=== PATIENT | female | born 1955 | race Two or more races ===

== ENCOUNTER 2023-04-02 10:00 | Inpatient (IN) | payer OTHER ==
[~2023-04-02] VITALS: Ht 149.9 cm; Wt 50.3 kg
[2023-04-02] MEDS ORDERED: SYNTHROID75 MCG PO (14:02)
[2023-04-02] MEDS ORDERED: DICY20TA PO (14:02)
[2023-04-02] MEDS ORDERED: COZAAR50 MG PO (14:02)
[2023-04-02] MEDS ORDERED: PEPCID AC20 MG PO (14:03)
[2023-04-06 18:47] LABS: HEMATOCRIT 37.2 % (36.0-45.00); HEMOGLOBIN 12.5 g/dL (12.0-15.00); MEAN CELL VOLUME 95.7 fL (80.00-100.00); MEAN CORPUSCULAR HEMOGLOBIN 32.3 pg (27.00-32.0); MEAN CORPUSCULAR HGB CONC 33.7 g/dl (32.0-36.0); RED BLOOD COUNT 3.88 M/uL (4.00-6.00); RED CELL DISTRIBUTION WIDTH 13.1 % (11.5-14.5)
[2023-04-06 18:48] LABS: PLATELET COUNT 126 K/uL (150-450)
[2023-04-06 19:06] LABS: ALBUMIN 3.4 gm/dL (3.4-5.0); CALCIUM 8.4 mg/dL (8.5-10.1); CREATININE SERUM 0.56 mg/dL (0.55-1.02); GFR 107.34; MAGNESIUM 1.5 mg/dL (1.8-2.4); PHOSPHOROUS 2.6 mg/dL (2.5-4.9); POTASSIUM 3.15 mEq/L (3.5-5.1)
[2023-04-07 08:05] LABS: ALBUMIN 3.3 gm/dL (3.4-5.0); CALCIUM 8.4 mg/dL (8.5-10.1); CREATININE SERUM 0.52 mg/dL (0.55-1.02); GFR 116.92; MAGNESIUM 1.8 mg/dL (1.8-2.4); PHOSPHOROUS 3.3 mg/dL (2.5-4.9); POTASSIUM 3.81 mEq/L (3.5-5.1)
[2023-04-07 08:15] LABS: HEMATOCRIT 36.4 % (36.0-45.00); HEMOGLOBIN 12.4 g/dL (12.0-15.00); MEAN CELL VOLUME 95.5 fL (80.00-100.00); MEAN CORPUSCULAR HEMOGLOBIN 32.5 pg (27.00-32.0); RED BLOOD COUNT 3.81 M/uL (4.00-6.00); RED CELL DISTRIBUTION WIDTH 13.1 % (11.5-14.5)
[2023-04-07 11:58] LABS: PLATELET COUNT 116 K/uL (150-450)
[2023-04-08 07:37] LABS: ALBUMIN 3.5 gm/dL (3.4-5.0); CALCIUM 8.6 mg/dL (8.5-10.1); CREATININE SERUM 0.64 mg/dL (0.55-1.02); GFR 92.01; MAGNESIUM 2.2 mg/dL (1.8-2.4); POTASSIUM 3.37 mEq/L (3.5-5.1)
[2023-04-08 08:18] LABS: HEMATOCRIT 39.9 % (36.0-45.00); HEMOGLOBIN 13.3 g/dL (12.0-15.00); MEAN CELL VOLUME 97.8 fL (80.00-100.00); MEAN CORPUSCULAR HEMOGLOBIN 32.6 pg (27.00-32.0); MEAN CORPUSCULAR HGB CONC 33.3 g/dl (32.0-36.0); RED BLOOD COUNT 4.08 M/uL (4.00-6.00); RED CELL DISTRIBUTION WIDTH 12.9 % (11.5-14.5)
[2023-04-08 08:43] LABS: PLATELET COUNT 123 K/uL (150-450)
[2023-04-08 09:07] LABS: PHOSPHOROUS 1.9 mg/dL (2.5-4.9)
[2023-04-09 08:18] LABS: HEMATOCRIT 38.6 % (36.0-45.00); MEAN CELL VOLUME 96.9 fL (80.00-100.00); MEAN CORPUSCULAR HEMOGLOBIN 32.7 pg (27.00-32.0); MEAN CORPUSCULAR HGB CONC 33.7 g/dl (32.0-36.0); RED BLOOD COUNT 3.98 M/uL (4.00-6.00); RED CELL DISTRIBUTION WIDTH 12.6 % (11.5-14.5)
[2023-04-09 08:21] LABS: PLATELET COUNT 126 K/uL (150-450)
[2023-04-09 08:42] LABS: ALBUMIN 3.3 gm/dL (3.4-5.0); CALCIUM 8.9 mg/dL (8.5-10.1); CREATININE SERUM 0.51 mg/dL (0.55-1.02); GFR 119.57; MAGNESIUM 1.8 mg/dL (1.8-2.4); PHOSPHOROUS 2.4 mg/dL (2.5-4.9); POTASSIUM 3.76 mEq/L (3.5-5.1)
== END 2023-04-09 12:25 | disposition home or self-care (01) | DRG 331 ==
LOC: SURG 04-06 07:00 → O/R 04-06 09:09 → SURG 04-06 10:00 → SURH 04-06 17:13
PROVIDERS: ADMIT Colon & Rectal Surgery; ATTEND Colon & Rectal Surgery
PROC: 0DBP4ZZ Excision of Rectum, Percutaneous Endoscopic Approach (ICD-10-PCS; 2023-04-06)
PROC: 0DJD8ZZ Inspection of Lower Intestinal Tract, Via Natural or Artificial Opening Endoscopic (ICD-10-PCS; 2023-04-06)
PROC: 0DTN4ZZ Resection of Sigmoid Colon, Percutaneous Endoscopic Approach (ICD-10-PCS; principal; 2023-04-06 07:00)
DX: K57.20 Diverticulitis of large intestine with perforation and abscess without bleeding (principal); R10.32 Left lower quadrant pain

== ENCOUNTER 2025-02-18 07:00 | Day surgery (SDC) | payer OTHER ==
[~2025-02-18 07:00] MED LIST: COZAAR50 MG PO; DICY20TA PO; PEPCID AC20 MG PO; SYNTHROID75 MCG PO
[2025-02-18] MEDS ORDERED: MIDAZOLAM HCL 2 MG/2 ML VIAL IV ONE (10:45)
[2025-02-18] MEDS ORDERED: fentaNYL CITRATE 50 MCG/ML AMPUL IV PUSH ONE (10:45)
[2025-02-18] MEDS ORDERED: ONDANSETRON HCL 2 MG/ML VIAL IV ONE (10:45)
[2025-02-18] MEDS ORDERED: DIPHENHYDRAMINE HCL 50 MG/ML VIAL 1ML IV ONE (10:45)
== END 2025-02-18 11:55 | disposition home or self-care (01) ==
LOC: AMB-ENDOS 07:00
PROVIDERS: ATTEND Colon & Rectal Surgery
DX: D12.8 Benign neoplasm of rectum (principal); K57.32 Diverticulitis of large intestine without perforation or abscess without bleeding; Z12.11 Encounter for screening for malignant neoplasm of colon